=== PATIENT | male | born 1990 | race Caucasian/White ===

== ENCOUNTER 2019-09-30 11:04 | Observation (INO) | payer OTHER ==
[~2019-09-30] VITALS: Ht 170.2 cm; Wt 83.9 kg
[2019-09-30] MEDS: ASPIRIN 81 MG CHEW TAB PO ONE ×2 (11:44→11:51)
[2019-09-30 12:18] LABS: BASOPHILS % 0.5 % (0.0-1.0); EOSINOPHILS % 0.7 % (0.0-6.0); HEMOGLOBIN 14.9 g/dL (14.0-18.0); LYMPHOCYTES # (AUTO) 1.8 (1.0-3.2); LYMPHOCYTES % 43.6 % (18.0-39.1); MEAN CORPUSCULAR HGB CONC 35.5 g/dL (31-35); MEAN CORPUSCULAR VOLUME 92.9 fL (81-99); MONOCYTES # (AUTO) 0.5 (0.2-0.8); MONOCYTES % 11.1 % (4.4-11.3); NEUTROPHILS # (AUTO) 1.9 (2.1-6.9); NEUTROPHILS % 43.9 % (38.7-80.0); PLATELET COUNT 229 x10e3/uL (140-360); RED BLOOD COUNT 4.52 x10e6/uL (4.3-5.7); RED CELL DISTRIBUTION WIDTH 11.9 % (11.7-14.4)
[2019-09-30 12:31] LABS: INR 0.86; PROTHROMBIN TIME 12.2 seconds (11.9-14.5)
[2019-09-30 12:32] LABS: PARTIAL THROMBOPLASTIN TIME 27.2 seconds (23.8-35.5)
[2019-09-30 12:39] LABS: ALANINE AMINOTRANSFERASE 33 IU/L (0-55); ALBUMIN 4.5 g/dL (3.5-5.0); ALBUMIN/GLOBULIN RATIO 1.7 (0.8-2.0); ALKALINE PHOSPHATASE 69 IU/L (40-150); ANION GAP 10.7 mmol/L (8-16); BLOOD UREA NITROGEN 9 mg/dL (7-26); BUN/CREATININE RATIO 9 (6-25); CALCIUM 9.6 mg/dL (8.4-10.2); CARBON DIOXIDE 28 mmol/L (22-29); CHLORIDE 103 mmol/L (98-107); CREATINE KINASE 83 IU/L (30-200); CREATININE, SERUM 0.97 mg/dL (0.72-1.25); EST GLOMERULAR FILTRATION RATE > 60 ML/MIN (60-); GLUCOSE 90 mg/dL (74-118); POTASSIUM 3.7 mmol/L (3.5-5.1); SODIUM 138 mmol/L (136-145)
--- NOTE | 2019-09-30 12:40 | Diagnostic Imaging Report ---
EXAMINATION: CHEST SINGLE (PORTABLE) INDICATION: Chest pain COMPARISON: None FINDINGS: LINES/TUBES:None LUNGS:The lungs are well-inflated. No focal consolidation or pulmonary edema. PLEURA:No pleural effusion or pneumothorax. MEDIASTINUM:The cardiomediastinal silhouette appears normal in size and shape. BONES/SOFT TISSUES:No acute osseous injury. ABDOMEN:No free air under the diaphragm. IMPRESSION: No focal pneumonia or pulmonary edema. Signed by: Ez Coombs MD on 09/30/2019 12:36 PM
--- NOTE | 2019-09-30 13:09 | NUR ---
pt updated on pending admit per dr. mccracken
--- NOTE | 2019-09-30 13:23 | NUR ---
pt does not want to be admitted. had questions re billing,coding, etc. dr. edwards spoke again wiht the pt.
--- NOTE | 2019-09-30 13:24 | NUR ---
ama form printed
--- NOTE | 2019-09-30 13:39 | NUR ---
discharge coordinator spoke with pt.; he's going to stay and be admitted
[2019-09-30] MEDS ORDERED: ASPIRIN 325 MG TAB PO ONE (13:45)
[2019-09-30] MEDS ORDERED: ONDANSETRON HCL INJ 2MG/ML 2ML 2 MG/ML VIAL IV PRN (13:45)
--- OUTSIDE RECORDS SUMMARY | 2019-09-30 13:58 | XMS REPORT ---
Author Author [facility] Address Unknown Phone Unavailable Care Team Providers Care Yoke Setter Name Role Phone MUSTAPHA MENDOZA Unavailable Unavailable Problems This patient has no known problems. Allergies, Adverse Reactions, Alerts This patient has no known allergies or adverse reactions. Medications This patient has no known medications. Results Test Description Test Time Test Comments Text Results Atomic Results Result Comments CHEST SINGLE (PORTABLE) 2019-09-30 12:27:00 [place] [address] Patient Name: MINDI MARLOW MR #: [id number] : 1990 Age/Sex: 29/M Req #: [id number] Adm Physician: Ordered by: MUSTAPHA MENDOZA MD Report #: [id number] Location: ER Room/Bed: Procedure: [id number] DX/CHEST SINGLE (PORTABLE) Exam Date: 09/30/19 Exam Time: 1145 REPORT STATUS: Signed EXAMINATION: CHEST SINGLE (PORTABLE) INDICATION: Chest pain COMPARISON: None FINDINGS: LINES/TUBES:None LUNGS:The lungs are well-inflated. No focal consolidation or pulmonary edema. PLEURA:No pleural effusion or pneumothorax. MEDIASTINUM:The cardiomediastinal silhouette appears normal in size and shape. BONES/SOFT TISSUES:No acute osseous injury. ABDOMEN:No free air under the diaphragm. IMPRESSION: No focal pneumonia or pulmonary edema. Signed by: Elizabeth Coombs MD on 09/30/2019 12:36 PM Dictated By: ELIZABETH COOMBS MD [id number] Transcribed By: MARNIE on 09/30/19 1236 COPY TO: MUSTAPHA MENDOZA MD
[2019-09-30] MEDS ORDERED: ASPIRIN 81 MG CHEW TAB PO ONE (14:00)
--- NOTE | 2019-09-30 14:01 | NUR ---
unable to obtain home meds. takes atorvastatin; unsure of dose and o.t.c. fish oil
--- NOTE | 2019-09-30 14:16 | NUR ---
H&P cc: cp HPI: 29yoM[facility] at 5[facility]. Substernal discomfort, with radiation to shoulder blades. Pt went to [facility], sent here. PMH: HLD, Cigarette use PSHx: hernia repair 20yrs ago, vasectomy Allergies; see emr FH/SH; father had [place] in 40s, . Occasionally smokes; Meds; see MAR ROS: no f/c/s/N/V/D/OROPEZA/vision chnages/skin rash/back pain/leg pain v/s; revd PE tired appearing anicteric ns1s2 mod bs soft nt nd no e/t skin dry n. affect No chest wall tenderness labs/meds; revd A/P; 29yoM Atypical CP Overweight BMI 29 Sinus bradycardia Current smoker HLD PLAN trend enzymes; obtain echo ASA check lipids/hba1c/TSH lovenox; pepcid Nico Martinez MD, PhD.
--- NOTE | 2019-09-30 14:17 | NUR ---
pt updated on admit to [facility]
[2019-09-30 14:38] LABS: CHOL/HDL RATIO 4.4 (3.9-4.7)
[2019-09-30 14:52] VITALS: BP 134/82
[2019-09-30 14:57] LABS: THYROID STIMULATING HORMONE 1.24 uIU/mL (0.350-4.940)
[2019-09-30 15:12] VITALS: BP 134/82
[2019-09-30] MEDS: FAMOTIDINE 20 MG TAB PO SCH (16:01)
[2019-09-30] MEDS: ENOXAPARIN SOD INJ 40 MG/0.4 ML SYR SC SCH (16:02)
[2019-09-30 20:33] VITALS: BP 119/73
[2019-09-30 20:45] LABS: CREATINE KINASE 50 IU/L (30-200)
[2019-09-30 21:14] VITALS: BP 119/73
[2019-10-01 00:38] VITALS: BP 115/76
--- NOTE | 2019-10-01 00:40 | NUR ---
TELE CALLED NURSE TO NOTIFY PATIENT IS RUNNING MARRY AT 39, NURSE WENT TO ASSESS PATIENT AND FOUND PATIENT SLEEPING. AROUSED EASILY TO VOICE AND VITAL SIGNS WERE 115/76 BP, 39 HR, PULSE OX 100% ON RA, MAP 83. PATIENT'S HEART RATE YANIV UP INTO 50S-60S WHILE NURSE IN ROOM. PATIENT STATES THAT HE IS A RUNNER AND HAS BEEN TOLD IN THE PAST THAT HE RUNS LOW. NO SIGNS OF DISTRESS NOTED AND NO CHANGE IN MENTAL STATUS. WILL CONT TO MONITOR.
[2019-10-01 04:36] VITALS: BP 107/66
[2019-10-01 04:48] VITALS: BP 107/66
[2019-10-01 05:44] LABS: BASOPHILS % 0.8 % (0.0-1.0); EOSINOPHILS # (AUTO) 0.1 (0.0-0.4); EOSINOPHILS % 1.4 % (0.0-6.0); HEMATOCRIT 42.2 % (38.2-49.6); HEMOGLOBIN 14.7 g/dL (14.0-18.0); LYMPHOCYTES # (AUTO) 2.4 (1.0-3.2); LYMPHOCYTES % 48.6 % (18.0-39.1); MEAN CORPUSCULAR HEMOGLOBIN 32.7 pg (28-32); MEAN CORPUSCULAR HGB CONC 34.8 g/dL (31-35); MEAN CORPUSCULAR VOLUME 93.8 fL (81-99); MONOCYTES # (AUTO) 0.5 (0.2-0.8); NEUTROPHILS # (AUTO) 1.8 (2.1-6.9); PLATELET COUNT 218 x10e3/uL (140-360)
[2019-10-01 06:34] LABS: ANION GAP 12.4 mmol/L (8-16); BLOOD UREA NITROGEN 10 mg/dL (7-26); BUN/CREATININE RATIO 11 (6-25); CALCIUM 9.5 mg/dL (8.4-10.2); CARBON DIOXIDE 26 mmol/L (22-29); CHLORIDE 104 mmol/L (98-107); CREATININE, SERUM 0.92 mg/dL (0.72-1.25); EST GLOMERULAR FILTRATION RATE > 60 ML/MIN (60-); GLUCOSE 96 mg/dL (74-118); POTASSIUM 4.4 mmol/L (3.5-5.1); SODIUM 138 mmol/L (136-145)
[2019-10-01] MEDS ORDERED: ASPIR 8181 MG PO (06:45)
[2019-10-01] MEDS ORDERED: FAMOTIDINE20 MG PO (06:45)
[2019-10-01] MEDS ORDERED: PRAVASTATIN SOD20 MG PO (06:45)
--- NOTE | 2019-10-01 06:47 | NUR ---
IM- progress note O/N bradycardia ROS: no f/c/s/N/V/D/OROPEZA/vision chnages/skin rash/back pain/leg pain v/s; revd PE tired appearing anicteric ns1s2 mod bs soft nt nd no e/t skin dry n. affect No chest wall tenderness labs/meds; revd A/P; 29yoM Atypical CP Overweight BMI 29 Sinus bradycardia Current smoker HLD PLAN trend enzymes; obtain echo ASA check lipids/hba1c/TSH lovenox; pepcid 11-7 bradyarrhythmia- check 12 lead EKG; get Stress test this am. If negative, d/c home. Nico Martinez MD, PhD.
[2019-10-01 08:03] VITALS: BP 121/73
[2019-10-01 08:15] VITALS: BP 121/73
[2019-10-01] MEDS: FAMOTIDINE 20 MG TAB PO SCH ×2 (08:15→17:15)
[2019-10-01] MEDS ORDERED: ASPIRIN 325 MG TAB EC PO SCH (09:00)
[2019-10-01] MEDS ORDERED: REGADENOSON 0.4 MG/5 ML SYR IV ONE (09:36)
[2019-10-01] MEDS ORDERED: ONDANSETRON HCL 4 MG ORAL DISINTEGRATING TAB PO PRN (13:15)
[2019-10-01] MEDS: ENOXAPARIN SOD INJ 40 MG/0.4 ML SYR SC SCH (17:00)
[2019-10-01 17:06] VITALS: BP 122/74
[2019-10-01] MEDS ORDERED: SIMVASTATIN 20 MG TAB PO SCH (21:00)
--- NOTE | 2019-10-02 01:15 | Consultation ---
DATE OF CONSULTATION: 10/01/2019 Cardiology Consultation REASON FOR CONSULT: Chest pain. CHIEF COMPLAINT: Chest pain. HISTORY OF PRESENT ILLNESS: A 29-year-old man works at the [employer], developed substernal chest pain 5 a.m. radiation to shoulder blade. He has strong family history of [place]. Father from [place] at age of 40. Possible familial hypercholesterolemia. The patient takes Lipitor as an outpatient. PAST MEDICAL HISTORY: 1. Hyperlipidemia. 2. Smoking. FAMILY HISTORY: CAD. SOCIAL HISTORY: Smoker. No drugs or alcohol. REVIEW OF SYSTEMS: As per HPI, otherwise negative. MEDICATIONS: Please see MAR. ALLERGIES: PLEASE SEE MAR. OBJECTIVE: VITAL SIGNS: Temperature afebrile, pulse 60, respiratory rate 18, blood pressure 122/74, saturating 99% on room air. GENERAL: Young man, in no acute distress. CARDIOVASCULAR: Regular rate and rhythm. No murmurs, rubs, or gallops. LUNGS: Clear to auscultation bilaterally. ABDOMEN: Soft, nontender, nondistended. NEURO AND PSYCH: Alert and oriented to person, place, and time. Normal affect. INPATIENT MEDICATIONS: Reviewed. LABORATORY DATA: Reviewed. Troponins negative. LDL 109. IMAGING DATA: Reviewed. Nuclear stress test shows normal perfusion, normal LV ejection fraction. ASSESSMENT AND PLAN: 1. Chest pain, atypical. 2. Family history of early coronary artery disease. 3. Hypercholesterolemia. PLAN: Stresses are normal. Troponins negative. The patient is okay to be discharged from cardiovascular standpoint. Continue to follow up at the [facility] as he has been doing previously. Thank you for this consult. We will continue to follow. MD DARIANA Karimi/CHERYL /[id number]
== END 2019-10-01 18:08 | disposition home or self-care (01) ==
LOC: ER 11:04 → ERHOLD 13:55 → IMCU 15:02
PROVIDERS: ADMIT Internal Medicine; ATTEND Internal Medicine
DX: R07.89 Other chest pain (principal); E66.9 Obesity, unspecified; Z68.29 Body mass index [BMI] 29.0-29.9, adult; R00.1 Bradycardia, unspecified; E78.5 Hyperlipidemia, unspecified; F17.210 Nicotine dependence, cigarettes, uncomplicated; Z82.49 Family history of ischemic heart disease and other diseases of the circulatory system
CPT/HCPCS: 36415 ×2; 71045; 78452; 80048; 80053; 80061; 82550 ×2; 82553 ×2; 83036; 84443; 84484 ×2; 85025 ×2; 85610; 85730; 93005 ×2; 93017; 93306; 99284; A9502; G0378 ×2; J1650; J2785